=== PATIENT | female | born 1960 | race Caucasian/White ===

== ENCOUNTER → 2017-08-24 | Outpatient (CLI) | payer BC | LOC: MC.RAD 09:40 | DX: Z12.31 Encounter for screening mammogram for malignant neoplasm of breast (principal) ==

== ENCOUNTER → 2017-08-27 | Outpatient (CLI) | payer BC | LOC: MC.RAD 09:51 | DX: R92.8 Other abnormal and inconclusive findings on diagnostic imaging of breast (principal) ==

== ENCOUNTER → 2017-08-28 | Outpatient (CLI) | payer BC | LOC: MC.RAD 06:45 | DX: D24.1 Benign neoplasm of right breast (principal); N60.11 Diffuse cystic mastopathy of right breast ==

== ENCOUNTER 2020-07-23 14:31 | Inpatient (IN) | payer BC, OTHER ==
[~2020-07-23] VITALS: Ht 167.7 cm; Wt 84.2 kg
[2020-09-12] VITALS (11 sets, daily range): BP systolic 135–187; BP diastolic 68–91; PULSE 51–100; TEMP 97.9–98.6
[2020-09-12] MEDS ORDERED: MOBIC15 MG PO (06:33)
[2020-09-12] MEDS ORDERED: COZAAR 25MG25 MG/TAB PO (06:33)
[2020-09-12] MEDS ORDERED: NEURONTIN100 MG/CAP PO (06:34)
[2020-09-12] MEDS ORDERED: NORCO 325 MG-51 TAB PO (06:34)
[2020-09-12] MEDS ORDERED: NATURAL IRON65 MG PO (06:35)
[2020-09-12] MEDS ORDERED: FOLIC ACID 40400 MCG PO (06:36)
[2020-09-12] MEDS ORDERED: VITAMIN C500 MG PO ×2 (06:36)
[2020-09-12] MEDS ORDERED: DULCOLAX STOOL100 MG PO (06:37)
[2020-09-13 02:06] VITALS: BP 156/94
[2020-09-13 04:05] VITALS: BP 183/94; PULSE 105; TEMP 99
[2020-09-13 06:46] LABS: HEMATOCRIT 37.1 % (37.0-47.0); HEMOGLOBIN 12.4 g/dl (12.5-16.0)
[2020-09-13 07:45] VITALS: BP 151/81; PULSE 99; TEMP 98.8
[2020-09-13 11:27] VITALS: BP 146/82; PULSE 93; TEMP 98.4
[2020-09-13] MEDS ORDERED: ROXICODONE 55 MG/TAB PO (15:44)
[2020-09-13] MEDS ORDERED: NORCO 325 MG-7.1 TAB PO (15:45)
[2020-09-13] MEDS ORDERED: SENOKOT S 50 MG1 TAB PO (15:46)
[2020-09-13] MEDS ORDERED: ASPI325T6 PO (15:46)
== END 2020-09-13 16:10 | disposition home or self-care (01) | DRG 470 ==
LOC: SURG 09-12 05:21 → INPTSU 09-12 05:21 → SURG 09-12 07:30
PROVIDERS: ADMIT Orthopaedic Surgery
PROC: 0SRC0J9 Replacement of Right Knee Joint with Synthetic Substitute, Cemented, Open Approach (ICD-10-PCS; principal; 2020-09-12 07:30)
DX: M17.11 Unilateral primary osteoarthritis, right knee (principal); I10 Essential (primary) hypertension; E78.5 Hyperlipidemia, unspecified; Z20.822 Contact with and (suspected) exposure to COVID-19
CPT/HCPCS: C1713; C1776; J0690; J2250; J2270; J2704; J7030; J7120